=== PATIENT | male | born 1985 | race Caucasian/White ===

== ENCOUNTER → 2019-11-17 16:08 | Outpatient (BNVA) | payer BC, SELFPAY | PROVIDERS: PCP Nurse Practitioner Family; Visit Provider Surgery | DX: D17.21 Benign lipomatous neoplasm of skin and subcutaneous tissue of right arm (principal); D17.22 Benign lipomatous neoplasm of skin and subcutaneous tissue of left arm | CPT/HCPCS: 88304 ==

== ENCOUNTER 2021-03-06 23:55 | Emergency (ER) | payer OTHER, SELFPAY ==
[2021-03-06 23:58] VITALS: BP 135/84; PULSE 91; RESP 17; TEMP 36.8; O2SAT 97; BMI 26.0
--- NOTE | 2021-03-07 00:14 | XRR_ITS ---
PROCEDURE INFORMATION: Exam: XR Left Hand Exam date and time: 03/07/2021 12:14 AM Age: 35 years old Clinical indication: Swelling; Hand; Left; Additional info: Infection, redness and swelling to posterior surface near the 4th & 5th metacarpal area TECHNIQUE: Imaging protocol: XR Left hand. Views: 3 or more views. COMPARISON: No relevant prior studies available. FINDINGS: Bones/joints: Normal. Soft tissues: Normal. XR/XR hand LT min 3V* [id number] IMPRESSION: No acute findings.
--- NOTE | 2021-03-07 00:15 | ED_ITS ---
HPI - Extremity Problem General: Chief complaint: Extremity Injury, Upper Stated complaint: Lt hand pain Time Seen by Provider: 03/06/21 23:56 Source: patient Mode of arrival: ambulatory Limitations: no limitations History of Present Illness: HPI Narrative: Patient is a 35-year-old male who presents to ED today with a complaint of a left hand infection. Patient states he initially noticed a small red area to the dorsal of his hand about 3 days ago. He was seen at urgent care and placed on Bactrim one tab twice daily. Patient states he has had approximately 6 doses of this and reports redness and swelling continues to worsen. He does have a history of MRSA. No known injury or trauma to the hand. No concern for foreign body. MD Complaint: extremity pain and extremity swelling Onset (ago): day(s) Pain Consistency: constant Location: left and upper extremity (hand) Radiation: none Relieving factors: immobilization Exacerbating factors: range of motion Associated symptoms: Reports no associated symptoms; Deny fever(s) Review of Systems Const: Denies: fever(s), chills, body aches, fatigue or malaise GI: Denies: nausea or vomiting Musc: Reports: extremity pain and extremity swelling Skin/Breast: Reports: new lesions (L hand) Neuro: Denies: numbness in extremities or sensory changes PFS ED PFSH: Medical History (Updated 03/07/21 @ 01:18 by PAN Vargas) Lipoma of both upper extremities Surgical History S/P excision of lipoma Family History Denies family history of Anesthesia complication Bleeding disorder Social History Smoking and tobacco status: never smoked Alcohol intake: current Alcohol intake frequency: few times a week Lives independently: Yes Household members: spouse Marital status: Current occupational status: employed History of recent travel: No Physical Exam Const: COMMON NORMALS: no acute distress, average body habitus, patient oriented x3, no limitations, healthy appearing, alert and well nourished Extremity: GENERAL: Yes normal exam except as noted OTHER: pt has an area of erythema and mild induration to dorsal L ulnar hand measuring about 1 inch with some surrounding cellulitis; no fluctance or drainage; pt has some mild/faint lymphangitic streaking extending to mid forearm; full ROM of all digits at this time; infection does not seem to affect volar/palmar hand or any of the digits Neuro: COMMON NORMALS: patient oriented x3, moves all extremities, no focal motor deficits and no sensory deficits noted SENSORIUM/ORIENTATION: Yes alert Skin: NARRATIVE SKIN EXAM: see extremity for pertinent skin findings Course Vital Signs: Vital signs: Vital Signs Temperature 98.2 F 03/06/21 23:58 Pulse Rate 91 03/07/21 00:27 Respiratory Rate 18 03/07/21 00:27 Blood Pressure 130/80 03/07/21 00:27 Pulse Oximetry 98 03/07/21 00:27 MDM - Extremity (Nontraumatic) MDM Narrative: Medical decision making narrative: Patient clinically appears well. His vital signs are normal. White count is 11.2. CRP is normal at 4.9. Patient clinically has a mild/moderate cellulitis to the dorsum of his left hand with some mild lymphangitic streaking. He was given a dose of IV vancomycin here. We will increase his Bactrim to 2 tabs twice daily and add Keflex. Strict return to ED precautions verbally given to patient. Lab Data: Labs: Lab Results 03/07/21 03/07/21 00:23 00:23 WBC 11.2 10^3/uL H 10 ^3/uL (4.0-10.0) RBC 4.71 10^6/uL 10^6 /uL (4.1-5.3) Hgb 14.5 g/dL g/dL (11.7-16.6) Hct 41.5 % L % (42.0-52.0) MCV 88.1 fl fl (80-94) MCH 30.8 pg pg (28.0-34.0) MCHC 34.9 g/dL g/dL (30.0-36.0) RDW 11.8 % L % (12.1-15.1) Plt Count 336 10^3/cmm 10^3 /cmm (130-400) MPV 9.6 fL fL (7.4-10.4) Neut % (Auto) 68.8 % % Lymph % (Auto) 21.0 % % [place] % (Auto) 8.2 % % Eos % (Auto) 1.3 % % Baso % (Auto) 0.4 % % Neut # (Auto) 7.69 10^3/uL 10^3 /uL (1.8-7.7) Lymph # (Auto) 2.4 10^3/uL 10^3/ uL (0.8-4.8) [place] # (Auto) 0.9 10^3/uL 10^3/ uL (0.2-0.9) Eos # (Auto) 0.2 10^3/uL 10^3/ uL (0.0-0.8) Baso # (Auto) 0.0 10^3/uL 10^3/ uL (0.0-0.1) Nucleated RBC % (a uto) 0 % % Nucleated RBCs # 0.0 /100WBC /100W BC Sodium 141 mmol/L mmol/L (136-145) Potassium 4.2 mmol/L mmol/L (3.5-5.1) Chloride 105 mmol/L mmol/L (98-107) Carbon Dioxide 22 mmol/L mmol/L (22-29) Anion Gap 18.2 (5-19) BUN 16 mg/dL mg/dL (6-20) Creatinine 0.9 mg/dL mg/dL (0.7-1.2) GFR Calculation 96.6 mL/min mL/mi n (90-130) Glucose 98 mg/dL mg/dL (65-115) Calculated Osmolal ity 293 mOsm/kg mOsm/ kg (285-295) Calcium 8.9 mg/dL mg/dL (8.5-10.5) C-Reactive Protein 4.9 mg/L mg/L (0.0-4.9) Imaging Data^: XR L hand: My impression: NAD Radiologist's impression: [facility] [address] [place] [address] XRay Report Signed Patient: Sanchez Queen Unit #: [id number] : 1985 Age/Sex: 35 / M ADM Date: 03/06/21 Loc: ER Room/Bed: Attending Dr: Ordering Provider/Ordering MD: Mami Feng Date of Service: 03/07/21 Procedure(s): XR hand LT min 3V* [id number] Accession Number(s): [id number] Report Number: [id number] PROCEDURE INFORMATION: Exam: XR Left Hand Exam date and time: 03/07/2021 12:14 AM Age: 35 years old Clinical indication: Swelling; Hand; Left; Additional info: Infection, redness and swelling to posterior surface near the 4th 5th metacarpal area TECHNIQUE: Imaging protocol: XR Left hand. Views: 3 or more views. COMPARISON: No relevant prior studies available. FINDINGS: Bones/joints: Normal. Soft tissues: Normal. XR/XR hand LT min 3V* [id number] IMPRESSION: No acute findings. Dictated By: Deni Mcgovern MD Signed By: Deni Mcgovern MD Signed Date/Time: 03/07/21100 DD/ Discharge Plan Discharge Patient Disposition: Home Clinical Impression: Cellulitis of left hand Condition: Stable Prescriptions: New Bactrim DS 800-160 mg tablet 2 tab PO BID 5 Days Qty: 20 RF: 0 cephalexin 500 mg capsule 500 mg PO Q6H 7 Days Qty: 28 RF: 0 No Action sulfamethoxazole-trimethoprim [Bactrim DS] 800-160 mg tablet 1 tab PO BID 7 Days Qty: 14 RF: 0 Discharge Orders: Discharge ED (Routine); Ordered 03/07/21 Ordered By: Mami Feng Patient Instructions: Cellulitis (ED) Activity Restrictions/Additional Instructions: As we discussed I want you to begin taking 2 tablets of Bactrim twice daily (total 4 tablets a day). You may use the remainder of your current prescription and then I have given you a new prescription for the remainder of the course. Please continue to monitor symptoms closely. You need to return to the ED for worsening redness, swelling, pain, progressive streaking up his arm, fevers greater than 100.4, or any other concerns you may have. Coding Level of Care Code ED Medical Records Supervisor for Levi Fwlani Exam Expanded Problem Focused
[2021-03-07] MEDS: vancomycin 1,000 MG in sodium chloride 0.9% 250 ML 250 MG IV (00:20)
[2021-03-07 00:27] VITALS: BP 130/80; PULSE 91; RESP 18; O2SAT 98
[2021-03-07 00:41] LABS: Basophils % 0.4 %; Eosinophils # 0.2 10^3/uL (0.0-0.8); Eosinophils % 1.3 %; Hematocrit 41.5 % (42.0-52.0); Hemoglobin 14.5 g/dL (11.7-16.6); Lymphocytes # 2.4 10^3/uL (0.8-4.8); Mean Corpuscular HGB Conc 34.9 g/dL (30.0-36.0); Mean Corpuscular Hemoglobin 30.8 pg (28.0-34.0); Mean Corpuscular Volume 88.1 fl (80-94); Mean Platelet Volume 9.6 fL (7.4-10.4); Monocytes # 0.9 10^3/uL (0.2-0.9); Monocytes % 8.2 %; Neutrophils # 7.69 10^3/uL (1.8-7.7); Neutrophils % 68.8 %; Nucleated Red Blood Cells % 0 %; Platelet Count 336 10^3/cmm (130-400); Red Blood Count 4.71 10^6/uL (4.1-5.3); Red Cell Distribution Width 11.8 % (12.1-15.1); White Blood Count 11.2 10^3/uL (4.0-10.0)
[2021-03-07 00:57] LABS: Blood Urea Nitrogen 16 mg/dL (6-20); C Reactive Protein 4.9 mg/L (0.0-4.9); Calcium 8.9 mg/dL (8.5-10.5); Carbon Dioxide 22 mmol/L (22-29); Chloride 105 mmol/L (98-107); Glomerular Filtration Rate 96.6 mL/min (90-130); Glucose 98 mg/dL (65-115); Osmolality Calculated 293 mOsm/kg (285-295); Sodium 141 mmol/L (136-145)
[2021-03-07 01:08] LABS: Anion Gap 18.2 (5-19); Potassium 4.2 mmol/L (3.5-5.1)
[2021-03-07] MEDS: acetaminophen 1,000 MG/100 ML PIGGYBACK 400 MG IV (01:40)
[2021-03-07 02:02] VITALS: BP 138/77; PULSE 88; RESP 18; O2SAT 98
== END 2021-03-07 02:03 | disposition home or self-care (01) ==
PROVIDERS: Emergency Provider Physician Assistant
DX: L03.114 Cellulitis of left upper limb (principal)
CPT/HCPCS: 73130; 80048; 85025; 86140; 96365; 96375; 99284; J3370; J7050

== ENCOUNTER 2021-06-04 10:38 | Outpatient (CLI) | payer OTHER, SELFPAY ==
--- NOTE | 2021-06-04 10:51 | XR_ITS ---
WS: [id number] Cervical spine, 3 views, 06/04/2021 Clinical Data: M54.12 - Radiculopathy, cervical region Comparison: None. Findings: No compression fractures are seen. There is minimal degenerative disc narrowing at C5-C6 wi th small C5 anterior inferior spur. There is no prevertebral soft tissue swelling. The odontoid is un remarkable. The soft tissues of the neck and the lung apices are normal. XR/XR cervical spine 3V* [id number] Impression: Minimal C5-C6 disc narrowing with small anterior C5 spur.
== END 2021-06-04 10:39 | disposition home or self-care (01) ==
PROVIDERS: PCP Nurse Practitioner Family; Visit Provider Nurse Practitioner Family
DX: M54.12 Radiculopathy, cervical region (principal)
CPT/HCPCS: 72040

== ENCOUNTER → 2021-09-16 09:48 | Outpatient (BNVA) | payer OTHER, SELFPAY | PROVIDERS: PCP Nurse Practitioner Family; Referring Provider Dermatology; Visit Provider Orthopaedic Surgery | DX: M54.50 Low back pain, unspecified (principal) | CPT/HCPCS: 72110 ==

== ENCOUNTER 2023-04-19 23:25 | Emergency (ER) | payer OTHER, SELFPAY ==
[2023-04-19 23:31] VITALS: BP 150/72; PULSE 73; RESP 16; TEMP 36.2; O2SAT 97; BMI 29.8
--- NOTE | 2023-04-19 23:36 | XRR_ITS ---
PROCEDURE INFORMATION: Exam: XR Left Ankle Exam date and time: 04/19/2023 11:48 PM Age: 37 years old Clinical indication: Injury or trauma; Fall; Sprain or strain; Patient HX: Left ankle sprain stepping out of truck. ; Additional info: Fall ankle pain swelling TECHNIQUE: Imaging protocol: Radiologic exam of the left ankle. Views: 3 or more views. COMPARISON: No relevant prior studies available. FINDINGS: Bones/joints: There is a small ankle joint effusion. Soft tissues: There is soft tissue swelling overlying the lateral malleolus. XR/XR ankle LT min 3V* [id number] IMPRESSION: No acute fracture or dislocation. Soft tissue swelling overlying the lateral malleolus.
--- NOTE | 2023-04-19 23:37 | ED_ITS ---
HPI - Extremity Problem General: Chief complaint: Extremity Injury, Lower Stated complaint: left ankle injury Time Seen by Provider: 04/19/23 23:32 History of Present Illness: Patient was getting out of a semitruck and stepped off and missed the step and rolled his ankle when he hit the ground. Patient had immediate swelling and pain. Patient denies any pain anywhere else. Movement and weightbearing makes pain worse. Review of Systems General: Reports: 10 or more systems reviewed and unremarkable except in HPI and below PFSH ED PFSH: Medical History Lipoma of both upper extremities Surgical History S/P excision of lipoma Family History Denies family history of Anesthesia complication Bleeding disorder Social History Smoking and tobacco/nicotine status: never used tobacco/nicotine Alcohol intake: current Alcohol intake frequency: few times a week Substance/Drug Use: never Lives independently: Yes Household members: spouse Marital status: Current occupational status: employed Physical Exam Neck/C-Spine: COMMON NORMALS: no JVD Chest: COMMONS NORMALS: normal inspection of the chest and normal palpation of entire chest wall Resp: COMMON NORMALS: normal respiratory effort, No retractions, No use of accessory muscles and clear to auscultation bilaterally AUSCULTATION: clear to auscultation bilaterally Cardio: COMMON NORMALS: no JVD, regular rate, regular rhythm, S1 normal heart sound present, S2 normal heart sound present, No gallops present (Cardio), No clicks present (Cardio), No murmurs present (Cardio) and No rub (Cardio) RATE: regular rate RHYTHM: regular rhythm HEART SOUNDS: S1 normal heart sound present and S2 normal heart sound present GI: COMMON NORMALS: Normal to inspection, nondistended, normoactive bowel sounds present, Soft to palpation, non-tender, No hepatosplenomegaly present and no masses PALPATION: Yes Soft to palpation and Yes No hepatosplenomegaly present Extremity: NARRATIVE EXTREMITY EXAM: Left lateral ankle swollen extremely tender to the touch. Decreased range of motion secondary to pain. Course Vital Signs: Vital signs: Vital Signs Temperature 97.1 F L 04/19/23 23:31 Pulse Rate 65 04/20/23 00:55 Respiratory Rate 18 04/20/23 00:55 Blood Pressure 121/70 04/20/23 00:55 Pulse Oximetry 96 04/20/23 00:55 Oxygen Delivery Me thod Room Air 04/19/23 23:31 MDM - Extremity (Nontraumatic) Medical Decision Making Patient had x-ray of his ankle which showed no acute fracture or dislocation. These results was discussed with the patient he was offered pain medicine he refused. We will place him in an Keanu wrap and discharged him to follow-up with his PCP. Differential Diagnosis Unlikely herpes zoster, gout, cellulitis, superficial thrombophlebitis, deep venous thrombosis of upper extremity, lower extremity edema or deep vein thrombosis of lower extremity Medical Records I reviewed the patient's medical records. Lab Data I reviewed the patient's lab results. Radiology Impressions Ankle X-Ray 04/19/23 23:36 IMPRESSION: No acute fracture or dislocation. Soft tissue swelling overlying the lateral malleolus. All radiology interpretation(s) finalized by discharge Discharge Plan Discharge Patient Disposition: Home Clinical Impression: Ankle sprain and strain Condition: Stable Prescriptions: No Action buspirone 15 mg tablet 15 mg PO .hs Qty: 90 0RF Discharge Orders: Discharge ED (Routine); Ordered 04/20/23 Ordered By: David Gilmore Referrals: Chelo Kaye FNP [Primary Care Provider] - 1 week Patient Instructions: Ankle Sprain (ED) Activity Restrictions/Additional Instructions: Please take Tylenol and/or Motrin for your pain as needed. Your pain should be worse within the next 24 hours and then get better every day from thereon out. If your pain is not significantly better at the end of 1 week you will need to follow-up with your primary care physician as you may need an MRI. Coding Level of Care Code ED Liquid Floor And Wall Applier for Levi Meeks
[2023-04-20 00:55] VITALS: BP 121/70; PULSE 65; RESP 18; O2SAT 96
== END 2023-04-20 00:51 | disposition home or self-care (01) ==
PROVIDERS: Emergency Provider Emergency Medicine; PCP Nurse Practitioner Family
DX: S93.402A Sprain of unspecified ligament of left ankle, initial encounter (principal); S96.912A Strain of unspecified muscle and tendon at ankle and foot level, left foot, initial encounter; X50.1XXA Overexertion from prolonged static or awkward postures, initial encounter
CPT/HCPCS: 73610; 99283